=== PATIENT | female | born 1950 | race Caucasian/White ===

== ENCOUNTER 2018-05-16 13:41 | Outpatient (CLI) | payer MEDICARE ==
[~2018-05-16 13:41] MED LIST: APIX2.5T PO; ASCO500C15 PO; CHOL10002 PO; CITA-278 PO; COL100C PO; CYAN50008 PO; EXEM25TA5 PO; FERR325T32 PO; GABA-532 PO; HYDR-4353 PO; METH5TAB2 PO; PANT40TA4 PO; ROSU5TAB PO; VENL-191 PO; viscous lidocaine 2% TOP
== END 2018-05-16 23:59 | disposition home or self-care (01) ==
LOC: RAD 13:41
PROVIDERS: ATTEND Thoracic Surgery (Cardiothoracic Vascular Surgery)
DX: R91.8 Other nonspecific abnormal finding of lung field (principal); J44.9 Chronic obstructive pulmonary disease, unspecified; F17.200 Nicotine dependence, unspecified, uncomplicated; Z98.890 Other specified postprocedural states; Z90.12 Acquired absence of left breast and nipple; Z85.3 Personal history of malignant neoplasm of breast
CPT/HCPCS: 71046

== ENCOUNTER 2019-03-19 08:34 | Day surgery (SDC) | payer MEDICARE ==
[~2019-03-19] VITALS: Ht 162.6 cm; Wt 73.9 kg
[2019-03-19] VITALS (11 sets, daily range): BP systolic 112–160; BP diastolic 49–73
[~2019-03-19 08:34] MED LIST changes: -CITA-278 PO; +CITA20TA28 PO
[2019-03-19] MEDS ORDERED: normal saline 1000ml 1,000 ML IV PRN (09:00)
[2019-03-19 09:26] LABS: ALBUMIN 2.8 G/DL (3.4-5.0); ANION GAP 9 (8-16); BLOOD UREA NITROGEN 14 MG/DL (7-18); BUN/CREATININE RATIO 6.7 (6.6-38.0); CALCIUM 9.1 MG/DL (8.5-10.1); CHLORIDE 108 MMOL/L (99-107); GLUCOSE 95 MG/DL (70-104); POTASSIUM 3.6 MMOL/L (3.5-5.1); SODIUM 141 MMOL/L (135-145); TOTAL CARBON DIOXIDE 23.9 MMOL/L (24-32); eGFR 23 ML/MIN
[2019-03-19 09:29] LABS: BASOPHILS % (AUTO) 0.7 % (0-1); EOSINOPHILS # (AUTO) 0.1 X10'3 (0-0.9); HEMOGLOBIN 9.5 g/dl (12.0-16.0); LYMPHOCYTES # (AUTO) 0.7 X10'3 (1.1-4.8); LYMPHOCYTES % (AUTO) 19.8 % (21-51); MEAN CORPUSCULAR HEMOGLOBIN 40.8 PG (27.0-31.0); MEAN CORPUSCULAR HGB CONC 33.9 g/dL (33.0-36.5); MEAN CORPUSCULAR VOLUME 120.5 FL (78-98); MEAN PLATELET VOLUME 8.5 FL (7.4-10.4); MONOCYTES # (AUTO) 0.2 X10'3 (0-0.9); MONOCYTES % (AUTO) 7.1 % (2-12); NEUTROPHILS # (AUTO) 2.3 X10'3 (1.8-7.7); NEUTROPHILS % (AUTO) 70.4 % (42-75); PLATELET COUNT 128 X10'3 (140-440); RED BLOOD COUNT 2.33 X10'6 (4.20-5.60); RED CELL DISTRIBUTION WIDTH 17.2 % (11.5-14.5); WHITE BLOOD COUNT 3.3 X10'3 (4.5-11.0)
[2019-03-19] MEDS ORDERED: PALB125C (09:52)
[2019-03-19] MEDS ORDERED: midazolam 2 mg/2 ml injection IV PRN (10:25)
[2019-03-19] MEDS ORDERED: LIDOcaine 1%/PF 5ML 10 MG/ML VIAL SQ ONE (10:25)
[2019-03-19] MEDS ORDERED: fentaNYL/PF 50MCG/1 ML 2ML syringe IV PRN (10:25)
[2019-03-19] MEDS ORDERED: fentaNYL/PF 50MCG/1 ML 2ML syringe ONE ×3 (10:31→13:56)
[2019-03-19] MEDS ORDERED: midazolam 2 mg/2 ml injection ONE ×3 (10:31→13:56)
[2019-03-19 11:06] LABS: PLATELET ESTIMATE DECREASED
[2019-03-19 11:07] LABS: ANISOCYTOSIS 1+; MICROCYTOSIS FEW
[2019-03-19 11:08] LABS: POLYCHROMASIA FEW; SPHEROCYTES FEW
== END 2019-03-19 15:45 | disposition home or self-care (01) ==
LOC: SSTAY O 08:34
PROVIDERS: ATTEND Radiology Vascular & Interventional Radiology
DX: M89.8X8 Other specified disorders of bone, other site (principal); J44.9 Chronic obstructive pulmonary disease, unspecified; F17.210 Nicotine dependence, cigarettes, uncomplicated; Z79.899 Other long term (current) drug therapy; Z85.3 Personal history of malignant neoplasm of breast; Z85.048 Personal history of other malignant neoplasm of rectum, rectosigmoid junction, and anus; Z85.42 Personal history of malignant neoplasm of other parts of uterus; Z85.038 Personal history of other malignant neoplasm of large intestine; Z90.49 Acquired absence of other specified parts of digestive tract; Z93.3 Colostomy status; Z79.01 Long term (current) use of anticoagulants
CPT/HCPCS: 20225; 36415; 77012; 80048; 85025; 85610; 99152; 99153; J2250; J3010; J7030

== ENCOUNTER 2019-08-21 07:09 | Inpatient (IN) | payer MEDICARE ==
[~2019-08-21] VITALS: Ht 162.6 cm; Wt 60.0 kg
[~2019-08-21 07:09] MED LIST changes: -ASCO500C15 PO; -COL100C PO; -EXEM25TA5 PO; -HYDR-4353 PO; +MAGN400C PO
[2019-08-21] MEDS ORDERED: normal saline 1000ML IV soln IV ONE (07:15)
[2019-08-21] MEDS ORDERED: ondansetron/PF 4mg/2ml inj IV ONE (07:15)
[2019-08-21 08:06] LABS: BASOPHILS % (AUTO) 0 % (0-1); EOSINOPHILS % (AUTO) 0 % (0-6); HEMATOCRIT 39.8 % (35.0-45.0); HEMOGLOBIN 13.4 g/dl (12.0-16.0); LYMPHOCYTES # (AUTO) 0.3 X10'3 (1.1-4.8); LYMPHOCYTES % (AUTO) 1.6 % (21-51); MEAN CORPUSCULAR HEMOGLOBIN 32.8 PG (27.0-31.0); MEAN CORPUSCULAR HGB CONC 33.8 g/dL (33.0-36.5); MEAN CORPUSCULAR VOLUME 97.2 FL (78-98); MEAN PLATELET VOLUME 7.7 FL (7.4-10.4); MONOCYTES # (AUTO) 0.4 X10'3 (0-0.9); MONOCYTES % (AUTO) 2.4 % (2-12); NEUTROPHILS # (AUTO) 16.7 X10'3 (1.8-7.7); PLATELET COUNT 173 X10'3 (140-440); RED BLOOD COUNT 4.09 X10'6 (4.20-5.60); RED CELL DISTRIBUTION WIDTH 20.1 % (11.5-14.5); WHITE BLOOD COUNT 17.4 X10'3 (4.5-11.0)
[2019-08-21 08:23] LABS: ALANINE AMINOTRANSFERASE 29 U/L (12-78); ALBUMIN 2.4 G/DL (3.4-5.0); ALBUMIN/GLOBULIN RATIO 0.5 (1.1-1.5); ALKALINE PHOSPHATASE 181 IU/L (46-116); ANION GAP 6 (8-16); ASPARTATE AMINO TRANSFERASE 33 U/L (10-37); BILIRUBIN,TOTAL 0.7 MG/DL (0.1-1.0); BLOOD UREA NITROGEN 65 MG/DL (7-18); BUN/CREATININE RATIO 18.7 (6.6-38.0); CALCIUM 9.6 MG/DL (8.5-10.1); CHLORIDE 80 MMOL/L (99-107); CREATININE 3.48 MG/DL (0.40-0.90); GLUCOSE 124 MG/DL (70-104); MAGNESIUM 1.4 MG/DL (1.5-2.4); TOTAL CARBON DIOXIDE 31.8 MMOL/L (24-32); TOTAL PROTEIN 6.9 G/DL (6.4-8.2); eGFR 13 ML/MIN
[2019-08-21 08:24] LABS: POTASSIUM 2.7 MMOL/L (3.5-5.1); SODIUM 118 MMOL/L (135-145)
[2019-08-21 09:46] LABS: PLATELET ESTIMATE NORMAL
[2019-08-21 09:47] LABS: ANISOCYTOSIS 3+
[2019-08-21] MEDS ORDERED: metoclopramide 5 mg/ml inj IV PRN (10:25)
[2019-08-21] MEDS ORDERED: potassium Cl 20 mEq SR tablet PO PRN (10:25)
[2019-08-21] MEDS ORDERED: magnesium 2GM in 50ml NS 50 ML IV PRN (10:25)
[2019-08-21] MEDS ORDERED: HYDROmorphone 1 mg/ml syringe IV PRN (10:25)
[2019-08-21] MEDS ORDERED: mag hydrox/Alum hydrox/simeth 30ml oral suspension PO PRN (10:25)
[2019-08-21] MEDS ORDERED: magnesium 4gm in 100ml NS 100 ML IV PRN (10:25)
[2019-08-21] MEDS ORDERED: ondansetron/PF 4mg/2ml inj IV PRN (10:25)
[2019-08-21] MEDS ORDERED: potassium CL 10mEq/100ml bag 100 ML IV PRN ×2 (10:25)
[2019-08-21] MEDS ORDERED: acetaminophen 325mg tablet PO PRN (10:25)
[2019-08-21 11:15] LABS: ALBUMIN 1.5 G/DL (3.4-5.0); ANION GAP 8 (8-16); BLOOD UREA NITROGEN 57 MG/DL (7-18); BUN/CREATININE RATIO 20.7 (6.6-38.0); CALCIUM 7.3 MG/DL (8.5-10.1); CHLORIDE 89 MMOL/L (99-107); CREATININE 2.75 MG/DL (0.40-0.90); GLUCOSE 88 MG/DL (70-104); SODIUM 126 MMOL/L (135-145); TOTAL CARBON DIOXIDE 28.6 MMOL/L (24-32); eGFR 17 ML/MIN
[2019-08-21 11:36] LABS: POTASSIUM 2.4 MMOL/L (3.5-5.1)
[2019-08-21 11:37] LABS: CLARITY,URINE SLIGHTLY CLOUDY (Clear); COLOR,URINE YELLOW (Yellow); GLUCOSE, URINE NEGATIVE (Neg); KETONES,URINE NEGATIVE (Neg); LEUKOCYTE ESTERASE ,URINE NEGATIVE (Neg); NITRITES, URINE NEGATIVE (Neg); OCCULT BLOOD,URINE SMALL (Neg); PROTEIN,URINE TRACE mg/dl (Neg); UROBILINOGEN,URINE 0.2 E.U/dL (0.2-1.0)
[2019-08-21 11:38] LABS: UA COLLECTION TYPE STRAIGHT CATH
[2019-08-21 11:43] LABS: SQUAMOUS EPITHELIAL CELL,UR FEW /LPF (FEW)
[2019-08-21 11:44] LABS: BACTERIA,URINE 2+ /HPF (Neg); RBC,URINE 0-2 /HPF (0-2); WBC,URINE 0-4 /HPF (0-4)
--- NOTE | 2019-08-21 12:33 | NUR ---
Wound care POC. Arrived at bedside for assessment of coccyx wound. Explained procedure to pt and pt gave informed verbal consent. Pt is alert and reports pain in her bottom at this time. Pt is being admitted to the floor but unknown what room at this time. Recommend a P500 [facility] bed once admitted. Coccyx presents with unstageable pressure wound. Pt states she does not know when it occurred. Mild odor after cleansing noted. Measures 3.2x1x1.5 cm. Dressed with therahoney, lightly packed with silver alginate and secured with optifoam. Will follow and add additional orders for pressure prevention once pt is on the floor. Bed left in lowest position, call light and personal items within reach.
[2019-08-21] MEDS: potassium Cl 20mEq in NS 1,000 ML IV SCH ×2 (12:38→21:06)
[2019-08-21] MEDS: potassium Cl 20 mEq SR tablet PO PRN ×3 (12:52→21:06)
[2019-08-21] MEDS ORDERED: ZOLP5TAB8 PO (13:01)
[2019-08-21] MEDS ORDERED: OXYC40TA48 PO (13:01)
[2019-08-21] MEDS ORDERED: LACT1CAP26 PO (13:01)
[2019-08-21] MEDS ORDERED: ONDA8TAB13 PO (13:01)
[2019-08-21] MEDS ORDERED: LEVE500T PO (13:01)
[2019-08-21] MEDS ORDERED: MAGN400C PO (13:01)
[2019-08-21] MEDS ORDERED: RIVA10TA PO (13:01)
[2019-08-21] MEDS ORDERED: SUCR1TAB PO (13:01)
[2019-08-21] MEDS ORDERED: LACT10SO74 PO (13:01)
[2019-08-21] MEDS ORDERED: PROC10TA10 PO (13:01)
[2019-08-21] MEDS ORDERED: CYCL-1 PO (13:01)
[2019-08-21] MEDS ORDERED: SPIR100T5 PO (13:01)
[2019-08-21] MEDS ORDERED: ASCO500T28 PO (13:01)
[2019-08-21] MEDS ORDERED: MORP15TA PO (13:01)
[2019-08-21] MEDS ORDERED: ACYC400T PO (13:01)
[2019-08-21] MEDS ORDERED: MELA5TAB12 PO (13:01)
[2019-08-21] MEDS ORDERED: DEXA4TAB PO (13:01)
[2019-08-21] MEDS ORDERED: CYAN500T46 PO (13:01)
[2019-08-21] MEDS ORDERED: MULT-1085 PO (13:01)
[2019-08-21] MEDS ORDERED: morphine IR (immed. release) 30mg tablet PO PRN (13:15)
[2019-08-21] MEDS ORDERED: proCHLORperazine 10mg tablet PO PRN (13:15)
[2019-08-21] MEDS ORDERED: zolpidem 5mg tablet PO PRN (13:15)
[2019-08-21] MEDS ORDERED: normal saline 1000ml 1,000 ML IV ONE (13:25)
[2019-08-21] MEDS ORDERED: LIDOcaine 2% 10ml TOPICAL JELLY (Urojet) TP ONE (13:25)
[2019-08-21] MEDS ORDERED: dexamethasone 4mg/ml inj IM SCH (14:00)
[2019-08-21] MEDS ORDERED: heparin, porcine 5000 units/ml vial SQ SCH (16:00)
--- NOTE | 2019-08-21 16:25 | NUR ---
Patient in room PCU 3027 admitted from ED. I have received report from Satya SALAMANCA and had the opportunity to ask questions and assume patient care.
[2019-08-21 16:42] VITALS: BP 89/45
[2019-08-21] MEDS: sucralfate 1 gm tablet PO SCH ×2 (17:11→20:12)
[2019-08-21] MEDS: piperacillin/tazo 3.375gm/50ml 50 ML IV SCH (17:24)
--- NOTE | 2019-08-21 17:42 | NUR ---
Patient presented to ED with shortness of breath, nausea and vomiting for a couple days, history of metastatic breast cancer with spine mets with radiation treatment one week ago and last chemotherapy two weeks ago per ED note. Has ileostomy. Admitted with sepsis, enteritis, hyponatremia, acute renal failure, hypokalemia (receiving replacement). Patient is edentulous, seen by for BSS today, reports swallowing well but slow chewing d/t dentures at home and recommends pureed diet with thin liquids. Pending weight documentation. Patient was seen at last admission in June 2019; at that time patient had reported to having the ileostomy for "37 years" and had no diet questions or concerns. At that time no visible fat or muscle loss. had addressed with both MD and patient possible need for a sublingual vitamin B12 or vitamin B12 injections in view of ileostomy and possible malabsorption of the vitamin, noted that MCV is now within normal range. Patient last stated weight was 68 kg in June and 72.73 kg in May. Currently pending PO Intake, weight assessment, skin integrity, etc. Will follow up tomorrow. Recommend: 1. continue pureed diet per recs 2. monitor need for oral nutrition supplement if with suboptimal PO Intake 3. continue bowel care 4. weight per rx Addendum: 08/21/19 at [address] Amended: Links added.
[2019-08-21 18:00] VITALS: BP 92/40
--- NOTE | 2019-08-21 18:29 | NUR ---
Problems reprioritized. Patient report given, questions answered & plan of care reviewed with Alma SALAMANCA.
--- NOTE | 2019-08-21 18:30 | NUR ---
Patient in room PCU 3027. I have received report from CHEIKH Grijalva and had the opportunity to ask questions and assume patient care.
[2019-08-21] MEDS: methadone 5mg tablet PO SCH (20:00)
[2019-08-21] MEDS: K and/or MAG REPLACEMENT MC SCH (20:00)
[2019-08-21] MEDS: docusate sod 100mg capsule PO SCH (20:00)
[2019-08-21] MEDS: oxyCODONE SR 40mg (sust release) tab PO SCH (20:00)
[2019-08-21] MEDS: dexamethasone 4mg/ml inj IV SCH (20:10)
[2019-08-21] MEDS: lactulose 20gm/30ml cup PO SCH (20:10)
[2019-08-21] MEDS: ferrous sulfate 325mg tablet PO SCH (20:11)
[2019-08-21] MEDS: venlafaxine 37.5mg tablet PO SCH (20:11)
[2019-08-21] MEDS: acyclovir 200 MG capsule PO SCH (20:11)
[2019-08-21] MEDS: magnesium oxide 400mg tablet PO SCH (20:12)
[2019-08-21] MEDS: levetiracetam 250mg tablet PO SCH (20:20)
[2019-08-21] MEDS: cyclobenzaprine 10mg tablet PO SCH (20:20)
[2019-08-21] MEDS: Melatonin 3mg tablet PO SCH (20:20)
[2019-08-21] MEDS: HYDROmorphone inj. 0.5 MG/0.5 ML DISP.SYRIN IV PRN (20:26)
[2019-08-21 22:00] VITALS: BP 78/37
[2019-08-21] MEDS ORDERED: vancomycin/NS 1 GM ADD-VANTAGE 250 ML IV SCH (22:50)
[2019-08-21 23:30] VITALS: BP 90/50
[2019-08-22] MEDS: piperacillin/tazo 3.375gm/50ml 50 ML IV SCH ×3 (01:47→16:12)
[2019-08-22] MEDS: dexamethasone 4mg/ml inj IV SCH ×4 (01:47→20:53)
[2019-08-22 02:00] VITALS: BP 88/50
[2019-08-22 05:59] LABS: BASOPHILS % (AUTO) 0.2 % (0-1); EOSINOPHILS % (AUTO) 0 % (0-6); HEMATOCRIT 29.6 % (35.0-45.0); HEMOGLOBIN 10.1 g/dl (12.0-16.0); LYMPHOCYTES # (AUTO) 0.1 X10'3 (1.1-4.8); MEAN CORPUSCULAR HGB CONC 34.3 g/dL (33.0-36.5); MEAN CORPUSCULAR VOLUME 99.2 FL (78-98); MEAN PLATELET VOLUME 7.2 FL (7.4-10.4); MONOCYTES # (AUTO) 0.1 X10'3 (0-0.9); MONOCYTES % (AUTO) 0.7 % (2-12); NEUTROPHILS # (AUTO) 8.2 X10'3 (1.8-7.7); NEUTROPHILS % (AUTO) 98.1 % (42-75); PLATELET COUNT 106 X10'3 (140-440); RED BLOOD COUNT 2.99 X10'6 (4.20-5.60); RED CELL DISTRIBUTION WIDTH 19.9 % (11.5-14.5); WHITE BLOOD COUNT 8.4 X10'3 (4.5-11.0)
[2019-08-22 06:10] LABS: ALANINE AMINOTRANSFERASE 16 U/L (12-78); ALBUMIN 1.4 G/DL (3.4-5.0); ALBUMIN/GLOBULIN RATIO 0.4 (1.1-1.5); ALKALINE PHOSPHATASE 108 IU/L (46-116); ANION GAP 9 (8-16); ASPARTATE AMINO TRANSFERASE 25 U/L (10-37); BILIRUBIN,TOTAL 0.5 MG/DL (0.1-1.0); BLOOD UREA NITROGEN 47 MG/DL (7-18); BUN/CREATININE RATIO 20.3 (6.6-38.0); CALCIUM 7.4 MG/DL (8.5-10.1); CHLORIDE 100 MMOL/L (99-107); CREATININE 2.32 MG/DL (0.40-0.90); GLUCOSE 97 MG/DL (70-104); MAGNESIUM 1.2 MG/DL (1.5-2.4); POTASSIUM 3.6 MMOL/L (3.5-5.1); SODIUM 133 MMOL/L (135-145); TOTAL CARBON DIOXIDE 24.5 MMOL/L (24-32); TOTAL PROTEIN 4.6 G/DL (6.4-8.2); eGFR 21 ML/MIN
[2019-08-22] MEDS: potassium Cl 20mEq in NS 1,000 ML IV SCH ×2 (06:21→16:21)
--- NOTE | 2019-08-22 06:24 | NUR ---
Problems reprioritized. Patient report given, questions answered & plan of care reviewed with CHEIKH Garza.
--- NOTE | 2019-08-22 06:42 | NUR ---
Patient in room PCU 3027. I have received report from CHEIKH Marquez and had the opportunity to ask questions and assume patient care. Patient asleep in bed and in no acute distress.
[2019-08-22 07:00] VITALS: BP 110/68
[2019-08-22 07:42] LABS: PLATELET ESTIMATE DECREASED
[2019-08-22 07:43] LABS: ANISOCYTOSIS 2+; HYPOCHROMASIA 1+
[2019-08-22] MEDS: cyclobenzaprine 10mg tablet PO SCH ×3 (07:49→20:59)
[2019-08-22] MEDS: vitamin D (cholecalciferol) 1,000 unit tablet PO SCH (07:49)
[2019-08-22] MEDS: cyanocobalamin 500mcg tablet PO SCH (07:50)
[2019-08-22] MEDS: gabapentin 300mg capsule PO SCH (07:51)
[2019-08-22] MEDS: levetiracetam 250mg tablet PO SCH ×2 (07:51→20:56)
[2019-08-22] MEDS: acyclovir 200 MG capsule PO SCH ×2 (07:51→20:55)
[2019-08-22] MEDS: pantoprazole 40mg Tablet.DR PO SCH (07:52)
[2019-08-22] MEDS: multivitamins, therapeutics tablet PO SCH (07:52)
[2019-08-22] MEDS: ascorbic acid 500mg tablet PO SCH (07:52)
[2019-08-22] MEDS: citalopram 20mg tablet PO SCH (07:53)
[2019-08-22] MEDS: ferrous sulfate 325mg tablet PO SCH ×2 (07:53→20:56)
[2019-08-22] MEDS: atorvastatin 20mg tablet PO SCH (07:53)
[2019-08-22] MEDS: sucralfate 1 gm tablet PO SCH ×4 (07:54→20:55)
[2019-08-22] MEDS: magnesium oxide 400mg tablet PO SCH ×2 (07:54→20:55)
[2019-08-22] MEDS: docusate sod 100mg capsule PO SCH ×2 (07:55→20:56)
[2019-08-22] MEDS: lactulose 20gm/30ml cup PO SCH ×3 (07:55→20:57)
[2019-08-22] MEDS: oxyCODONE SR 40mg (sust release) tab PO SCH ×2 (08:00→20:54)
[2019-08-22] MEDS: methadone 5mg tablet PO SCH ×2 (08:00→20:54)
[2019-08-22] MEDS ORDERED: magnesium 4gm in 100ml NS 100 ML IV PRN (08:15)
[2019-08-22] MEDS ORDERED: magnesium Cl slow-release 64mg tablet PO PRN (08:15)
--- NOTE | 2019-08-22 08:19 | NUR ---
PRESSURE ULCER EDUCATION: DEFINITION: A pressure ulcer is an area of skin that breaks down when you stay in one position too long. The constant pressure against the skin reduces the blood flow to that area and the affected tissue dies. CAUSES: "Being bedridden or in a wheelchair "Fragile skin "Having a chronic condition, such as diabetes or vascular disease "Inability to move certain parts of your body without assistance "Older age "Incontinence of urine or stool SYMPTOMS: "A reddened area that DOES NOT turn white when pressed on - this can be the beginning of a pressure ulcer "A blister, deep sore or a crater - these can be advanced pressure ulcers FIRST AID: "Relieve the pressure on this area "Keep the area clean and dry "Call your primary doctor if you see any of the above symptoms "DO NOT massage the area "DO NOT use a donut shaped or ring shaped pillow- these actually interfere with the blood flow and cause complications PREVENTION: "Check for pressure ulcers everyday "Change position at least every two hours to relieve pressure "Use items that help relieve pressure- pillows, sheepskin, foam padding, and powders. "Keep skin clean and dry "Eat healthy well balanced meals "Exercise daily IF YOU SEE ANY OF THESE SYMPTOMS WHILE IN THE HOSPITAL - TELL YOUR NURSE IMMEDIATELY. IF YOU SEE ANY OF THESE SYMPTOMS WHILE AT HOME OR HAVE ANY QUESTIONS OR CONCERNS ABOUT PRESSURE ULCERS - CALL YOUR PRIMARY DOCTOR IMMEDIATELY. Addendum: 08/22/19 at 0819 by Duc Franklin RN Amended: Links added.
[2019-08-22] MEDS: rivaroxaban 10mg tablet PO SCH (08:47)
[2019-08-22] MEDS: K and/or MAG REPLACEMENT MC SCH ×2 (08:50→20:00)
[2019-08-22 11:00] VITALS: BP 118/74
--- NOTE | 2019-08-22 14:14 | NUR ---
PAGER ID: [phone] MESSAGE: Marian shila [phone]. RE Cecil Wagner [id number]. FYI patient had positive blood culture, aerobic, R hand, gram + cocci in clusters. Thanks!
[2019-08-22 15:00] VITALS: BP 94/62
--- NOTE | 2019-08-22 15:42 | NUR ---
Paged Dr. Goldsmith regarding him needing to sign the informed consent for the PICC line. PAGER ID: [phone] MESSAGE: [phone]. Elizabeth Wagner. Can you please sign the informed consent for the PICC? Thank you. Kayla SALAMANCA x [phone]
--- NOTE | 2019-08-22 16:06 | NUR ---
Patient presented to ED with shortness of breath, nausea and vomiting for a couple days, history of metastatic breast cancer with spine mets with radiation treatment one week ago and last chemotherapy two weeks ago per ED note. Has ileostomy. Admitted with sepsis, enteritis, hyponatremia, acute renal failure, hypokalemia (receiving replacement). Patient is edentulous, seen by for BSS today, reports swallowing well but slow chewing d/t dentures at home and recommends pureed diet with thin liquids. Pending weight documentation. Patient was seen at last admission in June 2019; at that time patient had reported to having the ileostomy for "37 years" and had no diet questions or concerns. At that time no visible fat or muscle loss. RD had addressed with both MD and patient possible need for a sublingual vitamin B12 or vitamin B12 injections in view of ileostomy and possible malabsorption of the vitamin, noted that MCV is now within normal range. Patient last stated weight was 68 kg in June and 72.73 kg in May. WOC following patient, she has a necrotic unstageable pressure ulcer to coccyx with 100% slough. Eating about 25-49% of meals, not meeting needs, may benefit from ensure enlive with meals for calories and protein. Noted patient having copious stool output and is receiving lactulose TID, may benefit from prn bowel care versus routine to promote bowel regularity d/w RN and d/w MD. Recommend: 1. continue pureed diet, thin liquids per recs 2. ensure enlive TID with meals 3. bowel care as needed, may benefit from prn lactulose versus routine in view of copious ileostomy stool output 4. weight per rx Addendum: 08/22/19 at [address] Amended: Links added.
[2019-08-22 18:00] VITALS: BP 95/52
--- NOTE | 2019-08-22 18:26 | NUR ---
Problems reprioritized. Patient report given, questions answered & plan of care reviewed with CHEIKH Marquez. Patient stable at transfer of care.
--- NOTE | 2019-08-22 18:50 | NUR ---
Patient in room PCU 3027. I have received report from CHEIKH Marquez and had the opportunity to ask questions and assume patient care.
--- NOTE | 2019-08-22 18:57 | NUR ---
Problems reprioritized. Patient report given, questions answered & plan of care reviewed with CHEIKH Rankin.
[2019-08-22] MEDS: lactobacillus rhamnosus 10,000 MMU CELLS/CAPSULE PO SCH (20:54)
[2019-08-22] MEDS: Melatonin 3mg tablet PO SCH (20:55)
[2019-08-22] MEDS: venlafaxine 37.5mg tablet PO SCH (21:22)
[2019-08-22 22:00] VITALS: BP 95/47
[2019-08-22] MEDS ORDERED: vancomycin/NS 1 GM ADD-VANTAGE 250 ML IV SCH (23:00)
[2019-08-23] MEDS: potassium Cl 20mEq in NS 1,000 ML IV SCH ×3 (01:11→22:21)
[2019-08-23] MEDS: piperacillin/tazo 3.375gm/50ml 50 ML IV SCH (01:47)
[2019-08-23 02:00] VITALS: BP 100/59
[2019-08-23] MEDS: dexamethasone 4mg/ml inj IV SCH ×4 (03:09→19:50)
[2019-08-23 05:49] LABS: BASOPHILS % (AUTO) 0.1 % (0-1); EOSINOPHILS % (AUTO) 0 % (0-6); HEMATOCRIT 29.5 % (35.0-45.0); HEMOGLOBIN 9.8 g/dl (12.0-16.0); LYMPHOCYTES # (AUTO) 0.1 X10'3 (1.1-4.8); LYMPHOCYTES % (AUTO) 1.7 % (21-51); MEAN CORPUSCULAR HGB CONC 33.1 g/dL (33.0-36.5); MEAN CORPUSCULAR VOLUME 99.8 FL (78-98); MEAN PLATELET VOLUME 7.3 FL (7.4-10.4); MONOCYTES # (AUTO) 0.2 X10'3 (0-0.9); MONOCYTES % (AUTO) 1.9 % (2-12); NEUTROPHILS # (AUTO) 7.9 X10'3 (1.8-7.7); NEUTROPHILS % (AUTO) 96.3 % (42-75); PLATELET COUNT 110 X10'3 (140-440); RED BLOOD COUNT 2.96 X10'6 (4.20-5.60); RED CELL DISTRIBUTION WIDTH 20.6 % (11.5-14.5); WHITE BLOOD COUNT 8.2 X10'3 (4.5-11.0)
[2019-08-23 06:00] LABS: ALANINE AMINOTRANSFERASE 17 U/L (12-78); ALBUMIN 1.4 G/DL (3.4-5.0); ALBUMIN/GLOBULIN RATIO 0.4 (1.1-1.5); ALKALINE PHOSPHATASE 98 IU/L (46-116); ANION GAP 8 (8-16); ASPARTATE AMINO TRANSFERASE 23 U/L (10-37); BILIRUBIN,TOTAL 0.3 MG/DL (0.1-1.0); BLOOD UREA NITROGEN 42 MG/DL (7-18); BUN/CREATININE RATIO 18.3 (6.6-38.0); CALCIUM 7.9 MG/DL (8.5-10.1); CHLORIDE 110 MMOL/L (99-107); GLUCOSE 101 MG/DL (70-104); MAGNESIUM 1.4 MG/DL (1.5-2.4); POTASSIUM 3.5 MMOL/L (3.5-5.1); SODIUM 140 MMOL/L (135-145); TOTAL CARBON DIOXIDE 22.1 MMOL/L (24-32); TOTAL PROTEIN 4.6 G/DL (6.4-8.2); eGFR 21 ML/MIN
--- NOTE | 2019-08-23 06:30 | NUR ---
Patient in room PCU 3027. I have received report from CHEIKH Rankin and had the opportunity to ask questions and assume patient care.
--- NOTE | 2019-08-23 06:43 | NUR ---
Problems reprioritized. Patient report given, questions answered & plan of care reviewed with CHEIKH Pirnce.
[2019-08-23] MEDS: docusate sod 100mg capsule PO SCH ×2 (08:00→20:00)
[2019-08-23] MEDS: lactose-reduced food (Ensure Enlive) - 237ml bottle PO SCH ×4 (08:00→20:24)
[2019-08-23] MEDS: clindamycin 600mg/D5W 50ml 50 ML IV SCH ×3 (08:05→19:50)
[2019-08-23] MEDS: gabapentin 300mg capsule PO SCH (08:08)
[2019-08-23] MEDS: sucralfate 1 gm tablet PO SCH ×4 (08:08→20:26)
[2019-08-23] MEDS: citalopram 20mg tablet PO SCH (08:08)
[2019-08-23] MEDS: ferrous sulfate 325mg tablet PO SCH ×2 (08:08→20:00)
[2019-08-23] MEDS: lactulose 20gm/30ml cup PO SCH ×3 (08:08→20:26)
[2019-08-23] MEDS: levetiracetam 250mg tablet PO SCH ×2 (08:09→20:00)
[2019-08-23] MEDS: cyanocobalamin 500mcg tablet PO SCH (08:09)
[2019-08-23] MEDS: rivaroxaban 10mg tablet PO SCH (08:09)
[2019-08-23] MEDS: vitamin D (cholecalciferol) 1,000 unit tablet PO SCH (08:10)
[2019-08-23] MEDS: atorvastatin 20mg tablet PO SCH (08:10)
[2019-08-23] MEDS: ascorbic acid 500mg tablet PO SCH (08:10)
[2019-08-23] MEDS: magnesium oxide 400mg tablet PO SCH ×2 (08:10→20:00)
[2019-08-23] MEDS: multivitamins, therapeutics tablet PO SCH (08:10)
[2019-08-23] MEDS: acyclovir 200 MG capsule PO SCH ×2 (08:10→20:00)
[2019-08-23] MEDS: lactobacillus rhamnosus 10,000 MMU CELLS/CAPSULE PO SCH ×2 (08:10→20:00)
[2019-08-23] MEDS: cyclobenzaprine 10mg tablet PO SCH ×3 (08:10→20:27)
[2019-08-23] MEDS: pantoprazole 40mg Tablet.DR PO SCH (08:10)
[2019-08-23] MEDS: oxyCODONE SR 40mg (sust release) tab PO SCH ×2 (08:12→20:00)
[2019-08-23] MEDS: methadone 10mg tablet PO SCH ×2 (08:13→20:00)
[2019-08-23] MEDS: K and/or MAG REPLACEMENT MC SCH ×2 (08:14→19:49)
[2019-08-23 15:00] VITALS: BP 84/41
--- NOTE | 2019-08-23 15:59 | NUR ---
PAGER ID: [phone] MESSAGE: [id number]: Elizabeth Wganer - Pts manual BP is 79/40, HR 58, kindly advise -Niki [phone]
[2019-08-23] MEDS ORDERED: normal saline 500ml IV soln 1,000 ML IV ONE (16:00)
--- NOTE | 2019-08-23 16:00 | NUR ---
New orders from [facility] for a 500cc bolus of normal saline one time r/t hypotension
[2019-08-23] MEDS: dextrose 5%-water 1,000 ML IV SCH ×2 (17:21→21:41)
--- NOTE | 2019-08-23 18:25 | NUR ---
Problems reprioritized. Patient report given, questions answered & plan of care reviewed with CHEIKH Jacinto.
[2019-08-23 18:30] VITALS: BP 84/41
--- NOTE | 2019-08-23 18:30 | NUR ---
Patient in room PCU 3027. I have received report from CHEIKH VARGAS and had the opportunity to ask questions and assume patient care. RR WNL, PT AROUSABLET O STIMULATION ONLY, DOES OPEN EYES AND MOUTH, PT NOT EATING, UNABLE TO TAKE PILLS AT THIS TIME. B/P 84/41 RECEIVED BOLUS, D5W @ 250 INFUSING AT THIS TIME, WAS NOTIFIED OF ABOVE. CONTINUE TO MONITOR. Addendum: 08/23/19 at 1859 by Aissatou Rizzo RN Amended: Links added.
--- NOTE | 2019-08-23 18:30 | NUR ---
Serjio/Keo OSEI 79/41 Addendum: 08/23/19 at 1859 by Aissatou Rizzo RN Amended: Links added.
--- NOTE | 2019-08-23 19:02 | NUR ---
PT NOT AWAKE ENOUGHT TO TAKE CARAFATE, HELD AT THIS TIME, WILL RE-EVALUATE. Addendum: 08/23/19 at 1903 by Aissatou Rizzo RN Amended: Links added.
[2019-08-23 20:15] VITALS: BP_SYST 86; BP_SYST 88; BP_DIAS 38; BP_DIAS 50
--- NOTE | 2019-08-23 20:16 | NUR ---
kayli to monitor b/p Addendum: 08/23/19 at 2016 by Aissatou Rizzo RN Amended: Links added.
--- NOTE | 2019-08-23 20:17 | NUR ---
pt ledezma not wake up enought to tae po meds, cap refill wnl, feet warm + pulses, grimace and opens eyes with repositioned, open eyes with mild sternl rub, moved fingers slightly when asked to quality control expert pupils 2mm responsive. Addendum: 08/23/19 at 2019 by Aissatou Rizzo RN Amended: Links added.
[2019-08-23] MEDS: venlafaxine 37.5mg tablet PO SCH (20:27)
[2019-08-23] MEDS: Melatonin 3mg tablet PO SCH (20:27)
[2019-08-23 21:45] VITALS: BP 92/48
[2019-08-23 22:35] VITALS: BP 85/50
--- NOTE | 2019-08-23 22:36 | NUR ---
UNABLE TO OBTAIN TEMP, LEGS WARM + PULSES, UPPER EXT COOL ARMS ONLY, MILI KINGSLEY GIVEN, WILL RE ATTEMPT. Addendum: 08/23/19 at 2237 by Aissatou Rizzo RN Amended: Links added.
--- NOTE | 2019-08-23 22:53 | NUR ---
CALLED PT SPOUSE COLIN. EXPLAINED PT DECLINE TODAY, B/P AND NON RESPONSIVE, EXPLAINED TO SPOUSE HE COULD COME SEE HER TONIGHT. SPOUSE STATES HE IS UNABLE TO TONIGHT D/T HEALTH PROBLEMS, STATES HE CAN GET A RIDE IN THE MORNING. PT REMAINS FULL CODE, WILL CONTINUE TO MONITOR. SPOUSE ALSO AWARE SHE HAS NOT RESPONDED TO FLUID BOLUS TODAY, BUT WE CALLED MD AND HAVE NEW ORDERS. HE WOULD LIKE STAFF TO CALL HIM IF SHE MAKES ANY MORE DECLINES TONIGHT. HE WILL ALSO CALL HERE IN THE MORNING. Addendum: 08/23/19 at 5056 by Aissatou Rizzo RN Amended: Links added.
[2019-08-23] MEDS ORDERED: normal saline 1000ml 1,000 ML IV SCH (23:00)
[2019-08-24] VITALS (8 sets, daily range): BP systolic 88–97; BP diastolic 42–64
[2019-08-24] MEDS: normal saline 1000ml 1,000 ML IV SCH ×4 (01:27→20:10)
[2019-08-24] MEDS: dexamethasone 4mg/ml inj IV SCH ×4 (01:40→19:48)
[2019-08-24] MEDS: clindamycin 600mg/D5W 50ml 50 ML IV SCH ×4 (01:40→19:48)
[2019-08-24] MEDS: HYDROmorphone inj. 0.5 MG/0.5 ML DISP.SYRIN IV PRN ×2 (01:41→09:21)
[2019-08-24 05:48] LABS: BASOPHILS % (AUTO) 0.4 % (0-1); EOSINOPHILS % (AUTO) 0 % (0-6); HEMATOCRIT 30.3 % (35.0-45.0); HEMOGLOBIN 9.9 g/dl (12.0-16.0); LYMPHOCYTES # (AUTO) 0.2 X10'3 (1.1-4.8); LYMPHOCYTES % (AUTO) 1.4 % (21-51); MEAN CORPUSCULAR HEMOGLOBIN 33.4 PG (27.0-31.0); MEAN CORPUSCULAR HGB CONC 32.7 g/dL (33.0-36.5); MEAN PLATELET VOLUME 7.5 FL (7.4-10.4); MONOCYTES # (AUTO) 0.3 X10'3 (0-0.9); MONOCYTES % (AUTO) 2.7 % (2-12); NEUTROPHILS # (AUTO) 10.4 X10'3 (1.8-7.7); NEUTROPHILS % (AUTO) 95.5 % (42-75); PLATELET COUNT 112 X10'3 (140-440); RED BLOOD COUNT 2.97 X10'6 (4.20-5.60); RED CELL DISTRIBUTION WIDTH 20.5 % (11.5-14.5); WHITE BLOOD COUNT 10.9 X10'3 (4.5-11.0)
--- NOTE | 2019-08-24 06:10 | NUR ---
Problems reprioritized. Patient report given, questions answered & plan of care reviewed with CHEIKH Avery. Addendum: 08/24/19 at 0610 by Aissatou Rizzo RN Amended: Links added.
--- NOTE | 2019-08-24 06:36 | NUR ---
Patient in room PCU 3026E. I have received report from Ophelia SALAMANCA and had the opportunity to ask questions and assume patient care.
[2019-08-24 06:49] LABS: ALANINE AMINOTRANSFERASE 18 U/L (12-78); ALBUMIN 1.6 G/DL (3.4-5.0); ALBUMIN/GLOBULIN RATIO 0.5 (1.1-1.5); ALKALINE PHOSPHATASE 101 IU/L (46-116); ANION GAP 11 (8-16); ASPARTATE AMINO TRANSFERASE 20 U/L (10-37); BILIRUBIN,TOTAL 0.3 MG/DL (0.1-1.0); BLOOD UREA NITROGEN 42 MG/DL (7-18); BUN/CREATININE RATIO 19.8 (6.6-38.0); CALCIUM 7.6 MG/DL (8.5-10.1); CHLORIDE 106 MMOL/L (99-107); CREATININE 2.12 MG/DL (0.40-0.90); GLUCOSE 97 MG/DL (70-104); MAGNESIUM 3.1 MG/DL (1.5-2.4); POTASSIUM 3.3 MMOL/L (3.5-5.1); SODIUM 138 MMOL/L (135-145); TOTAL CARBON DIOXIDE 20.8 MMOL/L (24-32); TOTAL PROTEIN 4.8 G/DL (6.4-8.2); eGFR 23 ML/MIN
[2019-08-24 07:17] LABS: ANISOCYTOSIS 3+; PLATELET ESTIMATE DECREASED
--- NOTE | 2019-08-24 07:18 | NUR ---
Patient in room PCU 3027. I have received report from Massiel SALAMANCA and had the opportunity to ask questions and assume patient care.
--- NOTE | 2019-08-24 07:20 | NUR ---
Patient in room PCU 3027. I have received report from Clary SALAMANCA and had the opportunity to ask questions and assume patient care.
[2019-08-24] MEDS: acyclovir 200 MG capsule PO SCH ×2 (08:00→19:49)
[2019-08-24] MEDS: ascorbic acid 500mg tablet PO SCH (08:00)
[2019-08-24] MEDS: sucralfate 1 gm tablet PO SCH ×4 (08:00→20:59)
[2019-08-24] MEDS: K and/or MAG REPLACEMENT MC SCH ×2 (08:00→20:00)
[2019-08-24] MEDS: ferrous sulfate 325mg tablet PO SCH ×2 (08:00→19:49)
[2019-08-24] MEDS: cyanocobalamin 500mcg tablet PO SCH (08:00)
[2019-08-24] MEDS: cyclobenzaprine 10mg tablet PO SCH ×3 (08:00→21:06)
[2019-08-24] MEDS: lactobacillus rhamnosus 10,000 MMU CELLS/CAPSULE PO SCH ×2 (08:00→19:48)
[2019-08-24] MEDS: atorvastatin 20mg tablet PO SCH (08:00)
[2019-08-24] MEDS: levetiracetam 250mg tablet PO SCH ×2 (08:00→19:55)
[2019-08-24] MEDS: methadone 10mg tablet PO SCH ×2 (08:00→19:48)
[2019-08-24] MEDS: magnesium oxide 400mg tablet PO SCH ×2 (08:00→19:40)
[2019-08-24] MEDS: vitamin D (cholecalciferol) 1,000 unit tablet PO SCH (08:00)
[2019-08-24] MEDS: pantoprazole 40mg Tablet.DR PO SCH (08:00)
[2019-08-24] MEDS: gabapentin 300mg capsule PO SCH (08:00)
[2019-08-24] MEDS: lactulose 20gm/30ml cup PO SCH ×3 (08:00→21:00)
[2019-08-24] MEDS: multivitamins, therapeutics tablet PO SCH (08:00)
[2019-08-24] MEDS: rivaroxaban 10mg tablet PO SCH (08:00)
[2019-08-24] MEDS: docusate sod 100mg capsule PO SCH ×2 (08:00→19:48)
[2019-08-24] MEDS: lactose-reduced food (Ensure Enlive) - 237ml bottle PO SCH ×3 (08:00→18:10)
[2019-08-24] MEDS: oxyCODONE SR 40mg (sust release) tab PO SCH ×3 (08:00→20:00)
[2019-08-24] MEDS: citalopram 20mg tablet PO SCH (08:00)
--- NOTE | 2019-08-24 08:52 | NUR ---
nayeli DELA CRUZ PAGER ID: [phone] MESSAGE: Gena fuchs [phone]. RE Cecil Wagner 3027B. NOEMII that patient's was cleared by house sup to come this morning to talk about patient's code status, as patient is rapidly declining
--- NOTE | 2019-08-24 10:00 | NUR ---
MD is aware that patient is not alert enough to swallow medications, had hard time swallowing little sips of water.
[2019-08-24] MEDS ORDERED: magnesium 4gm in 100ml NS 100 ML IV PRN (11:40)
[2019-08-24] MEDS ORDERED: magnesium Cl slow-release 64mg tablet PO PRN (11:40)
[2019-08-24] MEDS ORDERED: potassium Cl 20 mEq SR tablet PO PRN ×2 (11:40)
[2019-08-24] MEDS: potassium CL 10mEq/100ml bag 100 ML IV PRN ×3 (12:09→16:15)
--- NOTE | 2019-08-24 12:59 | NUR ---
nayeli DELA CRUZ PAGER ID: [phone] MESSAGE: Gena fuchs [phone]. RE Cecil Wagner [id number]. Please call patient's at [phone] when you have the chance; called to say that family may want patient to stay Full Code
--- NOTE | 2019-08-24 13:20 | NUR ---
Spoke to Celestino on the phone, and he states that he would like patient to be a DNR. Bill said that there is some family who has questions about it, and I said that they can call me with any questions regarding. paged for code status change PAGER ID: [phone] MESSAGE: Gena fuchs [phone]. CHARY Jacob 3027B. agrees to DNR. Can I have order for DNR status? Thank you
--- NOTE | 2019-08-24 18:31 | NUR ---
Problems reprioritized. Patient report given, questions answered & plan of care reviewed with Prashant SALAMANCA.
[2019-08-24] MEDS: venlafaxine 37.5mg tablet PO SCH (20:58)
[2019-08-24] MEDS: Melatonin 3mg tablet PO SCH (20:58)
[2019-08-24] MEDS ORDERED: VANCOMYCIN LEVEL IV ONE (22:30)
[2019-08-25] VITALS (7 sets, daily range): BP systolic 93–122; BP diastolic 41–57
[2019-08-25] MEDS: dexamethasone 4mg/ml inj IV SCH ×4 (02:17→20:47)
[2019-08-25] MEDS: clindamycin 600mg/D5W 50ml 50 ML IV SCH ×2 (02:17→07:51)
[2019-08-25] MEDS: normal saline 1000ml 1,000 ML IV SCH ×4 (02:23→23:40)
--- NOTE | 2019-08-25 06:20 | NUR ---
Patient in room PCU 3027V. I have received report from Prashant SALAMANCA and had the opportunity to ask questions and assume patient care.
--- NOTE | 2019-08-25 06:22 | NUR ---
Problems reprioritized. Patient report given, questions answered & plan of care reviewed with KAILYN. Addendum: 08/25/19 at 0622 by Gilberto Rico RN Amended: Links added.
[2019-08-25 06:33] LABS: ALANINE AMINOTRANSFERASE 30 U/L (12-78); ALBUMIN 1.9 G/DL (3.4-5.0); ALBUMIN/GLOBULIN RATIO 0.5 (1.1-1.5); ALKALINE PHOSPHATASE 171 IU/L (46-116); ANION GAP 10 (8-16); ASPARTATE AMINO TRANSFERASE 91 U/L (10-37); BASOPHILS % (AUTO) 0.2 % (0-1); BILIRUBIN,TOTAL 0.3 MG/DL (0.1-1.0); BLOOD UREA NITROGEN 41 MG/DL (7-18); BUN/CREATININE RATIO 23.2 (6.6-38.0); CALCIUM 8.1 MG/DL (8.5-10.1); CHLORIDE 106 MMOL/L (99-107); CREATININE 1.77 MG/DL (0.40-0.90); EOSINOPHILS % (AUTO) 0 % (0-6); GLUCOSE 97 MG/DL (70-104); HEMATOCRIT 34.3 % (35.0-45.0); HEMOGLOBIN 11.4 g/dl (12.0-16.0); LYMPHOCYTES # (AUTO) 0.1 X10'3 (1.1-4.8); LYMPHOCYTES % (AUTO) 0.9 % (21-51); MAGNESIUM 2.5 MG/DL (1.5-2.4); MEAN CORPUSCULAR HEMOGLOBIN 33.4 PG (27.0-31.0); MEAN CORPUSCULAR HGB CONC 33.4 g/dL (33.0-36.5); MEAN CORPUSCULAR VOLUME 100.1 FL (78-98); MEAN PLATELET VOLUME 7.5 FL (7.4-10.4); MONOCYTES # (AUTO) 0.3 X10'3 (0-0.9); MONOCYTES % (AUTO) 2.6 % (2-12); NEUTROPHILS # (AUTO) 9.8 X10'3 (1.8-7.7); NEUTROPHILS % (AUTO) 96.3 % (42-75); PLATELET COUNT 138 X10'3 (140-440); RED BLOOD COUNT 3.43 X10'6 (4.20-5.60); RED CELL DISTRIBUTION WIDTH 21.1 % (11.5-14.5); SODIUM 136 MMOL/L (135-145); TOTAL CARBON DIOXIDE 20.3 MMOL/L (24-32); TOTAL PROTEIN 5.5 G/DL (6.4-8.2); WHITE BLOOD COUNT 10.2 X10'3 (4.5-11.0); eGFR 29 ML/MIN
--- NOTE | 2019-08-25 06:48 | NUR ---
Received critical K of 3.0, reported to Dr Sullivan and will begin replacement protocol
--- NOTE | 2019-08-25 06:56 | NUR ---
Patient in room PCU 3027. I have received report from Prashant SALAMANCA and had the opportunity to ask questions and assume patient care.
[2019-08-25] MEDS: citalopram 20mg tablet PO SCH (07:54)
[2019-08-25] MEDS: gabapentin 300mg capsule PO SCH (07:54)
[2019-08-25] MEDS: methadone 10mg tablet PO SCH ×2 (07:54→20:47)
[2019-08-25] MEDS: acyclovir 200 MG capsule PO SCH ×2 (07:56→20:47)
[2019-08-25] MEDS: levetiracetam 250mg tablet PO SCH ×2 (07:56→20:48)
[2019-08-25] MEDS: lactobacillus rhamnosus 10,000 MMU CELLS/CAPSULE PO SCH ×2 (07:59→20:47)
[2019-08-25] MEDS: pantoprazole 40mg Tablet.DR PO SCH (08:00)
[2019-08-25] MEDS: ferrous sulfate 325mg tablet PO SCH ×2 (08:00→20:47)
[2019-08-25] MEDS: docusate sod 100mg capsule PO SCH ×2 (08:00→20:48)
[2019-08-25] MEDS: lactulose 20gm/30ml cup PO SCH ×3 (08:00→20:48)
[2019-08-25] MEDS: vitamin D (cholecalciferol) 1,000 unit tablet PO SCH (08:00)
[2019-08-25] MEDS: atorvastatin 20mg tablet PO SCH (08:00)
[2019-08-25] MEDS: oxyCODONE SR 40mg (sust release) tab PO SCH ×2 (08:00→20:00)
[2019-08-25] MEDS: cyclobenzaprine 10mg tablet PO SCH ×3 (08:02→20:48)
[2019-08-25] MEDS: magnesium oxide 400mg tablet PO SCH ×2 (08:02→20:47)
[2019-08-25] MEDS: sucralfate 1 gm tablet PO SCH ×4 (08:02→20:47)
[2019-08-25] MEDS: multivitamins, therapeutics tablet PO SCH (08:02)
[2019-08-25] MEDS: ascorbic acid 500mg tablet PO SCH (08:02)
[2019-08-25] MEDS: cyanocobalamin 500mcg tablet PO SCH (08:02)
--- NOTE | 2019-08-25 08:17 | NUR ---
Patient's called and said that he spoke to patient on the phone last night and she was saying that she does not want to be DNR, but be changed back to Full Code. said he wants the same thing. Once I hung up with the , went and asked patient herself what code status she wanted, and she said she wants to be Full Code paged PAGER ID: [phone] MESSAGE: Gena fuchs [phone]. RE Cecil Wagner [id number]. Patient is much more alert today, and both patient and want code status changed back to Full Code from DNR
[2019-08-25] MEDS: lactose-reduced food (Ensure Enlive) - 237ml bottle PO SCH ×3 (08:22→18:05)
[2019-08-25] MEDS: rivaroxaban 10mg tablet PO SCH (08:22)
[2019-08-25] MEDS: Potassium Cl inj 40 MEQ in normal saline 500ml IV soln 500 ML IV PRN ×2 (08:34→15:10)
[2019-08-25] MEDS: K and/or MAG REPLACEMENT MC SCH ×2 (08:38→20:00)
[2019-08-25 11:08] LABS: ANISOCYTOSIS 3+; PLATELET ESTIMATE DECREASED
[2019-08-25 11:09] LABS: SPHEROCYTES FEW; TEAR DROP CELLS FEW
--- NOTE | 2019-08-25 13:11 | NUR ---
Reassessment: Pt PO remains poor 0-25% avg meals/ONS so far this admit not meeting needs. 650ml Ileostomy output receiving routine colace WNL. Pt declines nausea and reports normal GI symptoms today per RN. RN reports pt PO 25% ensure this AM and 25% breakfast already large improvement compared to yesterday; stopped at 25% ONS r/t strawberry flavor dislike. Dietary notified and ensures changed to chocolate BIDBD w/ vanilla at lunches. Would benefit from Vinh supplementation once PO improves given wound healing needs w/ unstageable coccyx PU. IF low PO persists pt will likley meet severe malnutrition criteria given current severe weakness. MCV 100.1 receiving appropriate vitamin/mineral supplementations as well as electrolyte replacements per protocol. Will continue to monitor. Recommend: 1. continue pureed diet, thin liquids per ST recs 2. ensure enlive TIDWM; chocolate BIDBD; vanilla w/ lunches 3. bowel care as needed; ileostomy output WNL 4. weekly wts 5. IF PO improves; consider Vinh supplementation given wound healing needs 6. monitor for additional severe malnutrition criteria this admit Addendum: 08/25/19 at [address] Amended: Links added.
[2019-08-25] MEDS: vancomycin/NS 1 GM ADD-VANTAGE 250 ML IV SCH (13:20)
--- NOTE | 2019-08-25 15:53 | NUR ---
Spoke to [facility], they said they will most likely remove the Port A Cath tomorrow and will place the orders tonight that they want.
--- NOTE | 2019-08-25 16:41 | NUR ---
Per [facility], hold blood thinners tonight and tomorrow for upcoming Port A Cath removal on 08/25
--- NOTE | 2019-08-25 18:29 | NUR ---
Problems reprioritized. Patient report given, questions answered & plan of care reviewed with Nelly SALAMANCA.
--- NOTE | 2019-08-25 18:30 | NUR ---
Patient in room PCU 3027. I have received report from Gena SALAMANCA and had the opportunity to ask questions and assume patient care.
[2019-08-25] MEDS: venlafaxine 37.5mg tablet PO SCH (20:47)
[2019-08-25] MEDS: Melatonin 3mg tablet PO SCH (20:48)
[2019-08-26] VITALS (16 sets, daily range): BP systolic 104–132; BP diastolic 50–70
[2019-08-26] MEDS: nystatin 15 GM powder TP SCH ×3 (00:30→19:57)
[2019-08-26] MEDS: dexamethasone 4mg/ml inj IV SCH ×4 (01:57→19:56)
[2019-08-26 05:58] LABS: BASOPHILS % (AUTO) 0.3 % (0-1); EOSINOPHILS % (AUTO) 0 % (0-6); HEMATOCRIT 30.9 % (35.0-45.0); HEMOGLOBIN 10.2 g/dl (12.0-16.0); LYMPHOCYTES # (AUTO) 0.1 X10'3 (1.1-4.8); MEAN CORPUSCULAR HGB CONC 33.1 g/dL (33.0-36.5); MEAN CORPUSCULAR VOLUME 99.5 FL (78-98); MEAN PLATELET VOLUME 7.6 FL (7.4-10.4); MONOCYTES # (AUTO) 0.3 X10'3 (0-0.9); MONOCYTES % (AUTO) 2.3 % (2-12); NEUTROPHILS # (AUTO) 11.3 X10'3 (1.8-7.7); NEUTROPHILS % (AUTO) 96.4 % (42-75); PLATELET COUNT 120 X10'3 (140-440); RED CELL DISTRIBUTION WIDTH 21.1 % (11.5-14.5); WHITE BLOOD COUNT 11.7 X10'3 (4.5-11.0)
--- NOTE | 2019-08-26 06:17 | NUR ---
Problems reprioritized. Patient report given, questions answered & plan of care reviewed with Gena SALAMANCA.
[2019-08-26] MEDS: normal saline 1000ml 1,000 ML IV SCH ×3 (06:20→20:13)
[2019-08-26 06:24] LABS: ALANINE AMINOTRANSFERASE 26 U/L (12-78); ALBUMIN 1.6 G/DL (3.4-5.0); ALBUMIN/GLOBULIN RATIO 0.5 (1.1-1.5); ALKALINE PHOSPHATASE 146 IU/L (46-116); ANION GAP 9 (8-16); ASPARTATE AMINO TRANSFERASE 46 U/L (10-37); BILIRUBIN,TOTAL 0.3 MG/DL (0.1-1.0); BLOOD UREA NITROGEN 37 MG/DL (7-18); BUN/CREATININE RATIO 26.2 (6.6-38.0); CALCIUM 7.9 MG/DL (8.5-10.1); CHLORIDE 113 MMOL/L (99-107); CREATININE 1.41 MG/DL (0.40-0.90); GLUCOSE 82 MG/DL (70-104); MAGNESIUM 1.9 MG/DL (1.5-2.4); POTASSIUM 3.8 MMOL/L (3.5-5.1); SODIUM 141 MMOL/L (135-145); TOTAL CARBON DIOXIDE 19.4 MMOL/L (24-32); TOTAL PROTEIN 4.7 G/DL (6.4-8.2); eGFR 37 ML/MIN
--- NOTE | 2019-08-26 06:28 | NUR ---
Patient in room PCU 3027L. I have received report from Nelly SALAMANCA and had the opportunity to ask questions and assume patient care.
[2019-08-26 06:54] LABS: ANISOCYTOSIS 3+; PLATELET ESTIMATE DECREASED
[2019-08-26] MEDS: lactulose 20gm/30ml cup PO SCH ×3 (08:00→19:54)
[2019-08-26] MEDS: oxyCODONE SR 40mg (sust release) tab PO SCH ×3 (08:00→20:14)
[2019-08-26] MEDS: lactose-reduced food (Ensure Enlive) - 237ml bottle PO SCH ×3 (08:00→18:23)
[2019-08-26] MEDS: docusate sod 100mg capsule PO SCH ×2 (08:00→19:57)
[2019-08-26] MEDS: K and/or MAG REPLACEMENT MC SCH ×2 (08:00→19:58)
--- NOTE | 2019-08-26 08:43 | NUR ---
Patient taken down to [facility] to have Port A Cath removed
[2019-08-26] MEDS ORDERED: LIDOcaine 1%/PF 5ML 10 MG/ML VIAL ONE (08:56)
[2019-08-26] MEDS ORDERED: fentaNYL/PF 50MCG/1 ML 2ML syringe ONE (08:56)
--- NOTE | 2019-08-26 09:45 | NUR ---
Patient returned from [facility] with Port A Cath removed. Patient received fentanyl during procedure, post op vitals initiated. Patient alert and stable
[2019-08-26] MEDS: lactobacillus rhamnosus 10,000 MMU CELLS/CAPSULE PO SCH ×2 (10:08→19:54)
[2019-08-26] MEDS: levetiracetam 250mg tablet PO SCH ×2 (10:08→19:55)
[2019-08-26] MEDS: pantoprazole 40mg Tablet.DR PO SCH (10:08)
[2019-08-26] MEDS: rivaroxaban 10mg tablet PO SCH (10:08)
[2019-08-26] MEDS: vitamin D (cholecalciferol) 1,000 unit tablet PO SCH (10:08)
[2019-08-26] MEDS: gabapentin 300mg capsule PO SCH (10:08)
[2019-08-26] MEDS: sucralfate 1 gm tablet PO SCH ×4 (10:09→19:54)
[2019-08-26] MEDS: ascorbic acid 500mg tablet PO SCH (10:09)
[2019-08-26] MEDS: magnesium oxide 400mg tablet PO SCH ×2 (10:09→19:56)
[2019-08-26] MEDS: multivitamins, therapeutics tablet PO SCH (10:09)
[2019-08-26] MEDS: cyanocobalamin 500mcg tablet PO SCH (10:09)
[2019-08-26] MEDS: citalopram 20mg tablet PO SCH (10:09)
[2019-08-26] MEDS: methadone 10mg tablet PO SCH ×2 (10:09→19:56)
[2019-08-26] MEDS: atorvastatin 20mg tablet PO SCH (10:10)
[2019-08-26] MEDS: ferrous sulfate 325mg tablet PO SCH ×2 (10:10→19:56)
[2019-08-26] MEDS: cyclobenzaprine 10mg tablet PO SCH ×3 (10:17→19:55)
[2019-08-26] MEDS: acyclovir 200 MG capsule PO SCH ×2 (10:17→19:56)
[2019-08-26] MEDS: vancomycin/NS 1 GM ADD-VANTAGE 250 ML IV SCH (12:44)
--- NOTE | 2019-08-26 18:00 | NUR ---
Patient in room PCU 3027. I have received report from Gena SALAMANCA and had the opportunity to ask questions and assume patient care.
--- NOTE | 2019-08-26 18:33 | NUR ---
Problems reprioritized. Patient report given, questions answered & plan of care reviewed with Amy SALAMANCA.
[2019-08-26] MEDS: venlafaxine 37.5mg tablet PO SCH (19:54)
[2019-08-26] MEDS: Melatonin 3mg tablet PO SCH (19:55)
[2019-08-27 01:30] VITALS: BP 129/62
[2019-08-27] MEDS: dexamethasone 4mg/ml inj IV SCH ×3 (01:59→14:16)
[2019-08-27] MEDS: normal saline 1000ml 1,000 ML IV SCH ×2 (02:20→11:00)
[2019-08-27 06:00] VITALS: BP 139/66
--- NOTE | 2019-08-27 06:22 | NUR ---
Problems reprioritized. Patient report given, questions answered & plan of care reviewed with Seth SALAMANCA.
--- NOTE | 2019-08-27 06:30 | NUR ---
Patient in room PCU 3027. I have received report from Amy SALAMANCA and had the opportunity to ask questions and assume patient care.
[2019-08-27] MEDS: K and/or MAG REPLACEMENT MC SCH (08:00)
[2019-08-27] MEDS: lactulose 20gm/30ml cup PO SCH ×2 (08:00→13:00)
[2019-08-27] MEDS: lactose-reduced food (Ensure Enlive) - 237ml bottle PO SCH (08:00)
[2019-08-27] MEDS: oxyCODONE SR 40mg (sust release) tab PO SCH (08:00)
[2019-08-27] MEDS: nystatin 15 GM powder TP SCH (08:00)
[2019-08-27] MEDS: magnesium oxide 400mg tablet PO SCH (08:27)
[2019-08-27] MEDS: acyclovir 200 MG capsule PO SCH (08:27)
[2019-08-27] MEDS: levetiracetam 250mg tablet PO SCH (08:27)
[2019-08-27] MEDS: rivaroxaban 10mg tablet PO SCH (08:27)
[2019-08-27] MEDS: vitamin D (cholecalciferol) 1,000 unit tablet PO SCH (08:28)
[2019-08-27] MEDS: gabapentin 300mg capsule PO SCH (08:28)
[2019-08-27] MEDS: docusate sod 100mg capsule PO SCH (08:29)
[2019-08-27] MEDS: cyclobenzaprine 10mg tablet PO SCH ×2 (08:29→14:15)
[2019-08-27] MEDS: pantoprazole 40mg Tablet.DR PO SCH (08:29)
[2019-08-27] MEDS: ascorbic acid 500mg tablet PO SCH (08:29)
[2019-08-27] MEDS: sucralfate 1 gm tablet PO SCH ×2 (08:29→14:16)
[2019-08-27] MEDS: cyanocobalamin 500mcg tablet PO SCH (08:29)
[2019-08-27] MEDS: atorvastatin 20mg tablet PO SCH (08:30)
[2019-08-27] MEDS: lactobacillus rhamnosus 10,000 MMU CELLS/CAPSULE PO SCH (08:30)
[2019-08-27] MEDS: multivitamins, therapeutics tablet PO SCH (08:30)
[2019-08-27] MEDS: citalopram 20mg tablet PO SCH (08:30)
[2019-08-27] MEDS: methadone 10mg tablet PO SCH (08:30)
[2019-08-27] MEDS: ferrous sulfate 325mg tablet PO SCH (08:30)
[2019-08-27 12:09] VITALS: BP 158/62
[2019-08-27] MEDS: vancomycin/NS 1 GM ADD-VANTAGE 250 ML IV SCH (14:30)
--- NOTE | 2019-08-27 16:00 | NUR ---
Pt transfered to [facility]. IV removed, canula intact. Tele-box removed and returned to [employer]. Pt Alert and vitals WNL at Transfer. Report called to [facility] to Kim SALAMANCA. Allowed Kim SALAMANCA to ask questions and then answered them. Pt's belongings gathered and sent with Pt. Pt's notified of Pt transfer. Pt wheeled down to [facility] by [employer]. Pt left with [employer] for [facility].
[2019-08-28] MEDS ORDERED: VANCOMYCIN LEVEL IV ONE (12:30)
== END 2019-08-27 16:09 | DRG 252 ==
LOC: ER 07:09 → ED HOLD 10:21 → UNDOADMIN 10:21 → ED HOLD 13:25 → PCU 3S 16:17 → ED HOLD 16:17
PROVIDERS: ADMIT Family Medicine; ATTEND Family Medicine
PROC: 0JPV0WZ Removal of Totally Implantable Vascular Access Device from Upper Extremity Subcutaneous Tissue and Fascia, Open Approach (ICD-10-PCS; principal; 2019-08-26)
PROC: 05PY03Z Removal of Infusion Device from Upper Vein, Open Approach (ICD-10-PCS; 2019-08-26)
DX: T80.211A Bloodstream infection due to central venous catheter, initial encounter (principal); A41.02 Sepsis due to Methicillin resistant Staphylococcus aureus; R65.21 Severe sepsis with septic shock; E87.1 Hypo-osmolality and hyponatremia; K56.600 Partial intestinal obstruction, unspecified as to cause; C79.51 Secondary malignant neoplasm of bone; N17.9 Acute kidney failure, unspecified; R68.0 Hypothermia, not associated with low environmental temperature; Z66 Do not resuscitate; C50.919 Malignant neoplasm of unspecified site of unspecified female breast; Z51.5 Encounter for palliative care; E86.0 Dehydration; G89.29 Other chronic pain; F32.9 Major depressive disorder, single episode, unspecified; E78.5 Hyperlipidemia, unspecified; K21.9 Gastro-esophageal reflux disease without esophagitis; G62.9 Polyneuropathy, unspecified; F17.210 Nicotine dependence, cigarettes, uncomplicated; E87.6 Hypokalemia; N18.9 Chronic kidney disease, unspecified; Z20.828 Contact with and (suspected) exposure to other viral communicable diseases; Y84.8 Other medical procedures as the cause of abnormal reaction of the patient, or of later complication, without mention of misadventure at the time of the procedure; E27.9 Disorder of adrenal gland, unspecified; I48.91 Unspecified atrial fibrillation; L89.159 Pressure ulcer of sacral region, unspecified stage; N20.0 Calculus of kidney; Z79.01 Long term (current) use of anticoagulants; Z85.038 Personal history of other malignant neoplasm of large intestine; Z92.3 Personal history of irradiation; Z90.10 Acquired absence of unspecified breast and nipple; Z92.21 Personal history of antineoplastic chemotherapy; Z88.8 Allergy status to other drugs, medicaments and biological substances; Z86.718 Personal history of other venous thrombosis and embolism; Z90.710 Acquired absence of both cervix and uterus; Z90.49 Acquired absence of other specified parts of digestive tract; Z80.0 Family history of malignant neoplasm of digestive organs; Z85.42 Personal history of malignant neoplasm of other parts of uterus; Z93.3 Colostomy status; Y92.89 Other specified places as the place of occurrence of the external cause
CPT/HCPCS: 36415; 36589; 71045; 74176; 76937; 80048; 80053; 81001; 83605; 83735; 84132; 84145; 85025; 87040; 87070; 87077; 87081; 87186; 92508; 92616; 93306; 96361; 96374; 97110; 97112; 97162; 97530; 99285; G0378; J1100; J1170; J2405; J2543; J3010; J3370; J3475; J3480; J3490; J7030; J7040; J7070